=== PATIENT | male | born 1965 | race Caucasian/White ===

== ENCOUNTER → 2017-01-11 | Day surgery (SDC) | payer OTHER ==
[~2017-01-11] VITALS: Ht 172.7 cm; Wt 77.8 kg
[~2017-01-11] MED LIST: ABILIFY PO; DEPAKOTE PO; LIDOCAINE 2% (SDV) 5 ML INJ ONE; PROPOFOL 60 ML ONE; [UNRECOGNIZED DRUG - OTHER] PO; [UNRECOGNIZED DRUG - OTHER] PO
[2017-01-11 15:24] VITALS: Ht 172.7 cm; Wt 77.8 kg
[2017-01-11 15:57] VITALS: BP 116/74; PULSE 77; RESP 18
--- NOTE | 2017-01-11 16:34 | OPPN ---
Date/Time of Note Date/Time of Note DATE: 01/11/17 TIME: 16:33 Operative Report Preoperative Diagnosis Screening colonoscopy Postoperative Diagnosis Internal hemorrhoids No colon neoplasm is identified Operation/Procedure Performed Colonoscopy Anesthesia Type: MAC Estimated blood loss: none Transfusion Required: no Specimen: none Grafts/Implants: none Complications: no COMFORT AVILA MD Jan 11, 2017 16:34
[2017-01-11 17:10] VITALS: BP 105/70; RESP 20
--- NOTE | 2017-01-11 20:55 | GILP ---
DATE OF PROCEDURE: 01/11/2017 PROCEDURE PERFORMED: Colonoscopy. SURGEON: Vee Grey MD PREOPERATIVE DIAGNOSIS: Screening colonoscopy. POSTOPERATIVE DIAGNOSES: 1. Colonoscopy all the way to the cecum. 2. Internal hemorrhoids. 3. No colon neoplasm was identified. INDICATION: Mr. Jose Shannon is a 51-year-old male patient who was scheduled for screening colonoscopy. The procedure and possible complications were well explained to the patient. He understood and consented to the procedure. DESCRIPTION OF PROCEDURE: Under influence of anesthesia, the colonoscope was carefully introduced in the rectum. Under direct vision it was advanced all the way to the cecum. FINDINGS: The patient had internal hemorrhoids. No colon neoplasm was identified. He tolerated the procedure very well. There was no complications from the procedure. At the end of procedure he was awake with stable vital signs. He was discharged home in the care of his family. IMPRESSION: 1. Colonoscopy all the way to the cecum. 2. Internal hemorrhoids. 3. No colon neoplasm was identified. PLAN: Next screening colonoscopy in 10 years. Dictated By: MD SHEREEN Davenport/obinna/sigifredo /Document#: [id number]
== END | disposition home or self-care (01) ==
LOC: GIL 15:02
PROVIDERS: ATTEND Internal Medicine Gastroenterology
DX: Z12.11 Encounter for screening for malignant neoplasm of colon (principal); K64.8 Other hemorrhoids
CPT/HCPCS: 45378; Z7610